=== PATIENT | male | born 1980 | race Caucasian/White ===

== ENCOUNTER 2018-10-26 16:33 | Emergency (ER) | payer OTHER ==
--- NOTE | 2018-10-26 16:45 | UC ---
General HPI - HPI Summary HPI Summary: 38 yo male presents with an episode of blurry vision earlier today. He tells me that for the last 6-7 months he has been dealing with pain in his feet upon waking in the morning that resolves with walking around and as the day progresses. He calls this "neuropathy". He has a strong fam hx of diabetes and assumed his blood sugar was elevated and that he was becoming diabetic. He does not have a PCP and admits that he has been afraid of the dx of diabetes. Today he was on his computer around 1400 and developed sudden onset of blurry vision that lasted ~30min before spontaneously resolving. He had no headache, dizziness , numbness, tingling, weakness, SOB, chest pain, palpitations, n/v. No head injury. This occurred approximately 2 hours before presenting to the . Currently he states all of his symptoms have resolved and he feels well. He repeatedly states that he is concerned his blood sugar spiked causing his blurry vision and that he is going to tonight from a diabetic coma. - History of Current Complaint Stated Complaint: PAIN IN HANDS, FEET, VISION BLURRY Time Seen by Provider: 10/26/18 16:44 Hx Obtained From: Patient Onset/Duration: Sudden Onset Onset Severity: Mild Current Severity: None - Allergy/Home Medications Allergies/Adverse Reactions: Allergies Allergy/AdvReac Type Severity Reaction Status Date / Time No Known Allergies Allergy Verified 10/26/18 17:21 Home Medications: Home Medications NK [No Home Medications Reported] 10/26/18 [History Confirmed 10/26/18] PMH/Surg Hx/FS Hx/Imm Hx - Additional Past Medical History Additional PMH: Back pain - Surgical History Surgical History: Yes Surgery Procedure, Year, and Place: Tonsillectomy, adenoidectomy - Family History Known Family History: Positive: Cardiac Disease, Hypertension - Social History Lives: With Family Alcohol Use: Occasionally Substance Use Type: None Smoking Status (MU): Never Smoked Tobacco Review of Systems All Other Systems Reviewed And Are Negative: Yes Constitutional: Positive: Negative Skin: Positive: Negative Eyes: Positive: Blurred Vision - resolved ENT: Positive: Negative Respiratory: Positive: Negative Cardiovascular: Positive: Negative Gastrointestinal: Positive: Negative Neurovascular: Positive: Negative Musculoskeletal: Positive: Other: - Pain in feet Neurological: Positive: Negative Psychological: Positive: Negative Physical Exam - Summary Physical Exam Summary: GENERAL: NAD. WDWN. No pain distress. SKIN: No rashes, sores, ulcers, masses, lesions. No sores on feet. HEENT: Head: AT/NC. Eyes: PERRLA. EOM intact. Conjunctiva clear without inflammation or discharge. Ears: Hearing grossly normal. TMs intact, no bulging, erythema, or edema. Nose: Nasal mucosa pink and moist. NTTP maxillary and frontal sinus. Throat: Posterior oropharynx without exudates, erythema, or tonsillar enlargement. Uvula midline. NECK: Supple. Nontender. FROM CHEST: CTAB. No r/r/w. No accessory muscle use. Breathing comfortably and in no distress. CV: RRR. Without m/r/g. Pulses intact. Brisk cap refill. ABDOMEN: Soft. NTTP. Bowel sounds present MSK: FROM in B/L UEs and LEs with symmetric strength. NEURO: A&Ox3. 3 word recall, remote, recent memory, ability to follow 2-step directions, and attention intact. CN: II: Peripheral atkinson intact. Vision normal. III, IV, : EOMI. No nystagmus. PERRLA. V: Sensations intact and symmetric. Opens mouth and clenches teeth. VII: No facial asymmetry. Forehead wrinkles. Grins, shuts eyes, frowns, puffs cheeks. VIII: Hearing intact to finger rub. IX, X: Swallows and coughs. Uvula midline. XI: Shrugs shoulders. Turns head against resistance. XII: No tongue deviation [id number] are intact. Gait with normal base. Romberg: maintains balance, no pronator drift. Normal speech. No facial drooping. Reflexes intact PSYCH: Age appropriate behavior. Triage Information Reviewed: Yes Vital Signs: Vital Signs: Temp Pulse Resp BP Pulse Ox 97.8 F 59 18 140/80 98 10/26/18 17:08 10/26/18 17:08 10/26/18 17:08 10/26/18 17:08 10/26/18 17:08 Laboratory Tests 10/26/18 17:22 POC Glucose (mg/dL) 81 Vital Signs Reviewed: Yes Course/Dx - Course Course Of Treatment: POC Glucose 81. I discussed at length with the pt that a POC glucose does not rule out diabetes , but a random glucose is a broad/general indicator of glucose levels. I am most concerned with the episode of blurry vision that occured earlier today. I suggested he go to the ER for further evaluation as he may have sustained a TIA or had an underlying arrhythmia. He did not want to do this and remains concerned about his blood sugar and potential diabetes. I discussed obtaining an EKG and CXR as well as bloodwork in the UC, since he did not want to go to the ED. He declined the EKG and CXR, but wished to have bloodwork done to check for lyme and diabetes. I made him aware of my concerns regarding TIA and/or arrhythmia causing his blurry vision and, if undiagnosed/untreated - could lead to permanent loss of function or . Pt voiced understanding and continued to decline going to the ED. Given this, I will draw for CBC, CMP, lyme, and A1C and have him establish with a PCP for lab review and further eval of his symptoms. Encouraged him to go to the ER if his symptoms return. - Diagnoses Provider Diagnosis: Blurry vision, Bilateral foot pain Discharge - Sign-Out/Discharge Documenting (check all that apply): Patient Departure All imaging exams completed and their final reports reviewed: No Studies - Discharge Plan Condition: Stable Disposition: HOME Referrals: Dangelo Charlton PA [Primary Care Provider] - [facility] [place] [place] [facility] [Outside] - 1 Week Additional Instructions: If you develop a fever, shortness of breath, chest pain, new or worsening symptoms - please call your PCP or go to the ED immediately. Your blood pressure was slightly elevated at todays visit. Please see your primary provider within 4 weeks for recheck and re-evaluation. We have drawn labwork for diabetes, lyme, and general blood counts. I strongly recommend that you call the Physician Referral number below to schedule an appointment within 1-2 weeks with a primary doctor for a general physical exam and further evaluation of your symptoms today. If your symptoms return, please go to the ER immediately or call 911 - Billing Disposition and Condition Condition: STABLE Disposition: Home
[2018-10-26 17:11] VITALS: BP 140/80
[2018-10-27 11:03] LABS: ABS Eosinophils 0.1 10^3/ul (0-0.6); ABS Lymphocytes 2.4 10^3/ul (1.0-4.8); ABS Monocytes 0.6 10^3/ul (0-0.8); ABS Neutrophils 4.6 10^3/ul (1.5-7.7); Eosinophil % 1.6 %; Hematocrit 45 % (42-52); Hemoglobin 15.3 g/dL (14.0-18.0); Lymphocyte % 31.4 %; Mean Corpuscular HGB Conc 34 g/dL (31-36); Mean Corpuscular Hemoglobin 28 pg (27-31); Mean Corpuscular Volume 84 fL (80-94); Mean Platelet Volume 7.7 fL (7.4-10.4); Nucleated Red Blood Cells % 0.1; Platelet Count 289 10^3/uL (150-450); Red Blood Count 5.38 10^6 /uL (4.18-5.48); Red Cell Distribution Width 14 % (10-15); White Blood Count 7.8 10^3/uL (3.5-10.8)
[2018-10-27 11:08] LABS: Albumin 4.5 g/dL (3.2-5.2); Calcium 9.3 mg/dL (8.6-10.3); Potassium 4.1 mmol/L (3.5-5.0); Total Bilirubin 0.7 mg/dL (0.2-1.0)
[2018-10-27 11:13] LABS: Albumin/Globulin Ratio 1.6 (1-3); BUN/Creatinine Ratio 14.4 (8-20); EGFR African American 103.7 (>60); EGFR Non-African American 85.7 (>60); Globulin 2.8 g/dL (2-4); Total Protein 7.3 g/dL (6.4-8.9)
== END 2018-10-26 18:15 | disposition home or self-care (01) ==
LOC: UCEAST 16:33
DX: H53.8 Other visual disturbances (principal); M79.672 Pain in left foot; M79.671 Pain in right foot
CPT/HCPCS: 36415; 80053; 83036; 85025; 86618; 99201; G0463